=== PATIENT | male | born 1990 | race Caucasian/White ===

== ENCOUNTER 2016-11-22 18:53 | Emergency (ER) | payer OTHER ==
[~2016-11-22] VITALS: Ht 160 cm; Wt 59.0 kg
[2016-11-22 18:53] VITALS: BP 132/76
--- NOTE | 2016-11-22 19:50 | PHYS DOC ---
General Chief Complaint: HEADACHE Stated Complaint: SINUS PROBLEMS Time Seen by MD: 19:47 Source: patient Problems: History of Present Illness Initial Comments Patient here for possible sinus problems. Patient says for the last 3 days he's had a feeling of pressure over the right side of the bridge of the nose and the right forehead. He has no history of injury or trauma to the area. Really has no history of previous sinus problems. He says that he has no distinct fever or chills. He has no real runny nose or nasal congestion today, says he has had some clear runny nose for the last couple of weeks as well as a cough productive of clear mucus. He has no sore throat or earache today. There is no chest pain or shortness of breath. He does have a cough is noted. There is no nausea vomiting or abdominal pain. There is no change amount of bladder habits he denies any focal extremity or neurologic complaints. Patient took some DayQuil for this at home which she's had provided excellent relief yesterday. He says he did it again today and it caused no relief of his discomfort. He says the pain feels somewhat worse when he is bending over. He notes no other increasing or decreasing factors. He does say the various family members had URI like symptoms off and on over the past month. Patient's past medical history is otherwise unremarkable. He smokes a half-pack of cigarettes per day. He is an occasional user of ethanol. Allergies: Coded Allergies: No Known Drug Allergies (Unverified , 03/17/16) Past Medical History Medical History: no pertinent history Social History Smoker: less than 1 pack/day Alcohol: occasionally Review of Systems All Other Systems: Reviewed and Negative Physical Exam General Appearance: WD/WN, no apparent distress Ear, Nose, Throat: normal ENT inspection, normal pharynx, other Neck: full range of motion, supple, normal inspection Respiratory: lungs clear, normal breath sounds, no respiratory distress Cardiovascular: regular rate, rhythm, no edema, no gallop Neurologic/Psychiatric: alert, normal mood/affect, oriented x 3 Skin: normal color Lymphatic: no adenopathy Comments Generally this is a well-developed well-nourished white male in no acute distress. Vitals are as noted. Pertinent findings on physical exam shows ears and throat to be clear. The nose appears clear. The patient does have some distinct tenderness to percussion and mildly to palpation over the area of the right frontal sinus and right ethmoid region. There is no signs of trauma noted. There is no evidence of periorbital swelling or cellulitis. Neck is supple without adenopathy or JVD. There's no meningeal signs. Chest is clear cardiovascular exam is unremarkable. He is awake alert oriented and cooperative. Remainder of physical exam is clinically unremarkable. Orders, Labs, Meds Old charts note a single prior ER visit for anxiety. I discussed with the patient most likely diagnosis of frontal ethmoid sinusitis. This really sounds more viral in nature. He has no purulent nasal discharge, he is afebrile, a little otherwise looks well. I did discuss with them that I could prescribe antibiotics, as he said that his relative had similar symptoms that were more generalized and responded well to antibiotics. I did explain, however, that I think this probably more viral in nature will probably resolve on its own. Patient voices understanding and is agreeable to defer. I will go ahead and prescribe some symptomatic medications including Tussionex, Claritin, and Afrin nasal spray. We discussed additional home care including rest, increasing fluids, steam treatments for the sinuses, and warm compresses to the area. He can also use Advil or Tylenol as needed for fever or pain. He voices understanding of the need to follow up with primary care or return to the ER sooner as needed if worsening anyway. He looks well, in no acute discomfort or stress, okay for discharge home at this time. CHUCK TERRY MD Nov 22, 2016 19:50
== END 2016-11-22 20:10 | disposition home or self-care (01) ==
LOC: ER 18:53
DX: R05 Cough (principal); R51 Headache; R09.89 Other specified symptoms and signs involving the circulatory and respiratory systems; F17.210 Nicotine dependence, cigarettes, uncomplicated
CPT/HCPCS: 99283

== ENCOUNTER 2020-03-28 10:52 | Emergency (ER) | payer SELFPAY | END 2020-03-28 12:17 | disposition left against medical advice (07) | LOC: ER 10:52 | DX: M25.522 Pain in left elbow (principal); Z53.21 Procedure and treatment not carried out due to patient leaving prior to being seen by health care provider ==